=== PATIENT | female | born 2000 | race Caucasian/White ===

== ENCOUNTER 2020-03-24 06:35 | Emergency (ER) | payer OTHER ==
[2020-03-24 06:53] VITALS: BMI 21.9
--- OUTSIDE RECORDS SUMMARY | 2020-03-24 06:56 | XMS ---
:2000 Author Organization [facility] Support Name Relationship Address Phone CATRACHITA Unavailable Unavailable Unavailable JACQUE MORENO MOTHER [address] [place] [id number] Re-disclosure Warning The records that you are about to access may contain information from federally- assisted alcohol or drug abuse programs. If such information is present, then the following federally mandated warning applies: This information has been disclosed to you from records protected by federal confidentiality rules (42 CFR part 2). The federal rules prohibit you from making any further disclosure of this information unless further disclosure is expressly permitted by the written consent of the person to whom it pertains or as otherwise permitted by 42 CFR part 2. A general authorization for the release of medical or other information is NOT sufficient for this purpose. The Federal rules restrict any use of the information to criminally investigate or prosecute any alcohol or drug abuse patient.The records that you are about to access may contain highly sensitive health information, the redisclosure of which is protected by Article 27-F of the [place] Public Health law. If you continue you may haveaccess to information: Regarding HIV / AIDS; Provided by facilities licensed or operated by the [place] Office of Mental Health; or Provided by the [place] Office for People With Developmental Disabilities. If such information is present, then the following [place] mandated warning applies: This information has been disclosed to you from confidential records which are protected by state law. State law prohibits you from making any further disclosure of this information without the specific written consent of the person to whom it pertains, or as otherwise permitted by law. Any unauthorized further disclosure in violation of state law may result in a fine or fci sentence or both. A general authorization for the release of medical or other information is NOT sufficient authorization for further disclosure. Insurance Providers Payer name Policy type Policy ID Covered Covered constitution party's Policy P monique / Coverage constitution party ID relationship to [employer] Inf ormation type carbone [facility] [id number] MEDICAID COMM PLAN
--- NOTE | 2020-03-24 07:09 | PDOC ---
History of Present Illness - General Chief Complaint: Pain Stated Complaint: ABD PAIN Time Seen by Provider: 03/24/20 07:08 History Source: Patient - History of Present Illness Initial Comments: 03/24/20 08:30 19F w/no PMH p/w two days of gradually worsening R lower abdominal pain radiating to her back. She reports dysuria over the last several days. Denies fevers, chills, nausea, vomiting. LMP 02/26/20, not on control, typically regular cycles. She is sexually active with one male partner. She reports taking Plan B one month ago, before her prior menstrual cycle. No known hx of ovarian cysts. Past History - Medical History Allergies/Adverse Reactions: Allergies Allergy/AdvReac Type Severity Reaction Status Date / Time No Known Allergies Allergy Verified 03/19/14 13:40 Home Medications: Ambulatory Orders NK [No Known Home Medication] 03/19/14 COPD: No - Reproductive History Is Patient Now?: No - Psycho-Social/Smoking History Smoking History: Never smoked Have you smoked in the past 12 months: No Information on smoking cessation initiated: No - Substance Abuse Hx (Audit-C & DAST Scrn) How often the patient has a drink containing alcohol: Never Score: In Men: 4 or > Positive; In Women: 3 or > Positive: 0 Screen Result (Pos requires Nsg. Audit-10AR): Negative In the last yr the pt used illegal drug/Rx for NonMed reason: No Score: Yes response is considered Positive: 0 Screen Result (Positive result requires Nsg. DAST-10): Negative Review of Systems - Review of Systems Able to Perform ROS?: Yes Comments:: 03/24/20 08:34 GENERAL/CONSTITUTIONAL: No fever or chills. No weakness. HEAD, EYES, EARS, NOSE AND THROAT: No change in vision. No ear pain or discharge. No sore throat. CARDIOVASCULAR: No chest pain or shortness of breath RESPIRATORY: No cough, wheezing, or hemoptysis. GASTROINTESTINAL: No nausea, vomiting, diarrhea or constipation. GENITOURINARY: Dysuria, R flank pain. No frequency, or other change in urination. MUSCULOSKELETAL: No joint or muscle swelling or pain. No neck or back pain. SKIN: No rash NEUROLOGIC: No headache, vertigo, loss of consciousness, or change in strength/sensation. ENDOCRINE: No increased thirst. No abnormal weight change HEMATOLOGIC/LYMPHATIC: No anemia, easy bleeding, or history of blood clots. ALLERGIC/IMMUNOLOGIC: No hives or skin allergy. *Physical Exam - Vital Signs Last Vital Signs Temp Pulse Resp BP Pulse Ox 98.0 F 77 20 110/59 L 100 03/24/20 06:50 03/24/20 06:50 03/24/20 06:50 03/24/20 06:50 03/24/20 06:50 - Physical Exam 03/24/20 08:35 GENERAL: Awake, alert, and fully oriented, in no acute distress HEAD: No signs of trauma, normocephalic, atraumatic EYES: PERRLA, EOMI, sclera anicteric, conjunctiva clear ENT: Auricles normal inspection, hearing grossly normal, nares patent, oropharynx clear without exudates. Moist mucosa NECK: Normal ROM, supple, no lymphadenopathy, JVD, or masses LUNGS: No distress, speaks full sentences, clear to auscultation bilaterally HEART: Regular rate and rhythm, normal S1 and S2, no murmurs, rubs or gallops, peripheral pulses normal and equal bilaterally. ABDOMEN: RLQ tenderness. No CVA tenderness. Soft, otherwise nontender, nor moactive bowel sounds. No guarding, no rebound. No masses EXTREMITIES : Normal inspection, Normal range of motion, no edema. No clubbing or cyanosis NEUROLOGICAL: Cranial nerves II through XII grossly intact. Normal speech, normal gait, no focal sensorimotor deficits SKIN: Warm, Dry, normal turgor, no rashes or lesions noted PELVIC: No external lesions or discharge. Physiologic discharge. No adnexal tenderness, no cervical motion tenderness. Os closed. No active bleeding or blood in vaginal vault. ED Treatment Course - LABORATORY CBC & Chemistry Diagram: 03/24/20 09:24 03/24/20 09:24 Medical Decision Making - Medical Decision Making 03/24/20 08:36 19F w/no PMH p/w two days gradually worsening lower R abdominal pain alongside dysuria. Ddx UTi vs pyelonephritis given flank pain, although she is afebrile and denies chills. Ovarian torsion vs cyst pain possible, torsion unlikely without nausea, vomiting, with minimal pain and without adnexal tenderness on exam. Plan: UA Urine culture Urine test G/C cervical swab Acetaminophen Dispo: Discharge --- Urine hcg - negative UA - no UTI on analysis On reassessment, patient has persistent RLQ pain, and remains tender on exam. Plan for additional labs, likely CT abdomen/pelvis to eval for other abdominal pathology. --- WBC - [address] abdomen/pelvis --- CT - CT showing ruptured ovarian cyst, no appendicitis or other abdominal pathology identified. Plan for transvaginal ultrasound. --- TVUS - Ruptured ovarian cyst with free fluid, likely hemorrhagic On reassessment, patient reports resolution of symptoms. Discussed results with patient. Plan for discharge with close bag end sewer follow up. Discharge - Discharge Information Problems reviewed: Yes Clinical Impression/Diagnosis: Ovarian cyst Condition: Stable Disposition: HOME - Admission No - Follow up/Referral Referrals: Almaz Jaramillo MD [Primary Care Provider] - Paresh Dodge MD [Staff Physician] - - Patient Discharge Instructions Patient Printed Discharge Instructions: DI for Ovarian Cyst Additional Instructions: You were seen in the ER for an ovarian cyst. Your ultrasound showed an ovarian cyst with normal blood flow. It is important that you follow up with bag end sewer as soon as possible, in the next 2-3 days. Return to the ER if you develop intractable nausea and vomiting, chest pain, or difficulty breathing. - Post Discharge Activity
[2020-03-24] MEDS ORDERED: ACETAMINOPHEN 325 MG TABLET (FP) ONE ×2 (07:31→07:40)
[2020-03-24] MEDS: ACETAMINOPHEN 325 MG TABLET (FP) PO ONE ×2 (07:46→07:48)
[2020-03-24 08:44] LABS: URINE APPEARANCE CLEAR; URINE BILIRUBIN NEGATIVE (NEGATIVE); URINE COLOR YELLOW; URINE GLUCOSE (UA) NEGATIVE (NEGATIVE); URINE KETONE NEGATIVE (NEGATIVE); URINE LEUK ESTERASE NEGATIVE (NEGATIVE); URINE NITRITE NEGATIVE (NEGATIVE); URINE PROTEIN NEGATIVE (NEGATIVE); URINE UROBILINOGEN 0.2 mg/dL (0.2-1.0)
[2020-03-24 08:49] LABS: HCG,QUALITATIVE URINE Negative
--- NOTE | 2020-03-24 09:22 | PDOC ---
Attending Attestation - Resident Resident Name: Kenneth Fajardo - ED Attending Attestation I have performed the following: I have examined & evaluated the patient, The case was reviewed & discussed with the resident, I agree w/resident's findings & plan, Exceptions are as noted - HPI HPI: 03/24/20 09:18 19 yo F p/w RLQ pain radiating to back, worsening, x2 days. Also reports dysuria but otherwise denies vaginal itching pain or discharge. Is sexually active, 1 partner male no contraception use. Denies h/o STI's. States LMP 02/25 and took plan B ~3 weeks ago but did not bleed after taking it. Denies fevers, n/v. No diarrhea or constipation. - Physicial Exam PE: 03/24/20 09:20 General: well appearing, comfortable Abdomen: soft, mild RLQ ttp, no rebound, no guarding Back: no CVA tenderness Pelvic: normal external genitalia, os closed, no CMT, no adnexal tenderness or fullness, no discharge - Medical Decision Making 03/24/20 09:21 19 yo F with mild RLQ ttp, very unlikely torsion as patient appears comfortable, no n/v, no h/o cysts that patient is aware of and pain duration 2 days. Possible appy given RLQ ttp however low suspicion. Possible early menstrual cramps as LMP was 02/25. Also possible UTI or kidney stones. Will also r/o . Plan: -labs -urine -pain control as needed -CT a/p -reassess This clinical encounter is taking place during a federal and state health care emergency attributable to the novel [place] Virus pandemic. The [place] of the Department of Health and Human Services has declared, pursuant to the Public Health Service Act 319F-3 (42 U.S.C. 247d-6d), that a covered persons activities related to medical countermeasures against COVID-19 will be immune from liability under Federal and State law. 03/24/20 15:22 CT and pelvic sono results reviewed. Patient with resolution of symptoms. Suspect symptoms 2/2 ruptured cyst. Patient feels well enough to go home. WIll d/c with return precautions, recommend CAREER DEVELOPMENT ENGINEER f/u. Discharge - Discharge Information Problems reviewed: Yes Clinical Impression/Diagnosis: Ovarian cyst Condition: Stable Disposition: HOME - Follow up/Referral Referrals: Paresh Dodge MD [Staff Physician] - Almaz Jaramillo MD [Primary Care Provider] - - Patient Discharge Instructions Patient Printed Discharge Instructions: DI for Ovarian Cyst Additional Instructions: You were seen in the ER for an ovarian cyst. Your ultrasound showed an ovarian cyst with normal blood flow. It is important that you follow up with rag room supervisor as soon as possible, in the next 2-3 days. Return to the ER if you develop intractable nausea and vomiting, chest pain, or difficulty breathing. - Post Discharge Activity
[2020-03-24] MEDS ORDERED: LACTATED RINGERS SOLUTION 1000 ML INFUS.BAG IV ONE (09:25)
[2020-03-24 09:50] LABS: BASO % 0.1 % (0-2.0); EOS % 3.5 % (0-4.5); HEMATOCRIT 36.9 % (32.4-45.2); HEMOGLOBIN 12.9 GM/dL (10.7-15.3); LYMPH % 25.2 % (8-40); MCH 31.2 pg (25.7-33.7); MONO % 6.1 % (3.8-10.2); NEUT % 65.1 % (42.8-82.8); PLATELET COUNT 327 K/MM3 (134-434); RBC 4.15 M/mm3 (3.60-5.2); RDW 12.7 % (11.6-15.6); WHITE BLOOD COUNT 14.2 K/mm3 (4.0-10.0)
[2020-03-24 09:51] LABS: INR 1.12 (0.83-1.09); PROTHROMBIN TIME (PATIENT) 13.5 SEC (9.7-13.0)
[2020-03-24 09:52] LABS: POTASSIUM 4.3 mmol/L (3.5-5.1)
[2020-03-24 09:54] LABS: ACTIVATED PTT 29.1 SECONDS (25.2-36.5); CALCIUM 8.6 mg/dL (8.5-10.1)
[2020-03-24 09:55] LABS: ALBUMIN 3.6 g/dl (3.4-5.0); BLOOD UREA NITROGEN 11.4 mg/dL (7-18)
[2020-03-24 09:58] LABS: CREATININE 0.7 mg/dL (0.55-1.3)
[2020-03-24 10:00] LABS: BILIRUBIN,TOTAL 0.6 mg/dL (0.2-1); TOT PROT 7.2 g/dl (6.4-8.2)
[2020-03-24 14:40] VITALS: BP 109/56; PULSE 69; TEMP 98.4
== END 2020-03-24 15:29 | disposition home or self-care (01) ==
LOC: JER 06:35
DX: N83.209 Unspecified ovarian cyst, unspecified side (principal)
CPT/HCPCS: 36415; 74177-TC; 76830-TC; 80053; 81003; 82962; 84702; 84703; 85025; 85610; 85730; 86850; 86900; 86901; 87081; 87086; 99284-25; Q9967

== ENCOUNTER 2021-01-20 05:08 | Emergency (ER) | payer OTHER ==
[2021-01-20 05:19] VITALS: BMI 21.0
[2021-01-20] MEDS ORDERED: CEPHALEXIN 250 MG/5 ML ORAL SUSPENSION PO ONE (06:11)
[2021-01-20] MEDS ORDERED: ACETAMINOPHEN 325 MG TABLET (FP) PO ONE (06:12)
[2021-01-20] MEDS ORDERED: LIDOCAINE HCL/EPINEPHRINE/PF 10 ML VIAL NR ONE (06:21)
[2021-01-20] MEDS ORDERED: CEPHALEXIN MONOHYDRATE 500 MG CAPSULE (UD) ONE (06:24)
[2021-01-20] MEDS ORDERED: ACETAMINOPHEN 325 MG TABLET (FP) ONE (06:24)
[2021-01-20] MEDS ORDERED: LIDOCAINE 1%/EPI 1:100000 (20 ML MULTI DOSE VIAL) ONE (09:07)
[2021-01-20] MEDS ORDERED: DIPHTH,PERTUSS(ACELL),TET 0.5 ML DISP.SYRIN IM ONE ×2 (10:08→10:20)
[2021-01-20] MEDS ORDERED: LIDOCAINE 1%/EPI 1:100000 (20 ML MULTI DOSE VIAL) IJ ONE (10:20)
[2021-01-20 11:30] VITALS: BP 105/67; PULSE 66; TEMP 98.2
== END 2021-01-20 11:31 | disposition home or self-care (01) ==
LOC: JER 05:08
PROC: 3E0234Z Introduction of Serum, Toxoid and Vaccine into Muscle, Percutaneous Approach (ICD-10-PCS; principal; 2021-01-20)
DX: S09.90XA Unspecified injury of head, initial encounter (principal); W19.XXXA Unspecified fall, initial encounter; Y92.9 Unspecified place or not applicable
CPT/HCPCS: 70450-TC; 90715; 99284-25

== ENCOUNTER 2021-01-29 18:49 | Emergency (ER) | payer OTHER ==
[2021-01-29 19:09] VITALS: BP 120/70; PULSE 75; TEMP 98; BMI 21.0
== END 2021-01-29 23:20 | disposition home or self-care (01) ==
LOC: JERFT 18:49
DX: S01.01XA Laceration without foreign body of scalp, initial encounter (principal); V49.9XXA Car occupant (driver) (passenger) injured in unspecified traffic accident, initial encounter; Z48.02 Encounter for removal of sutures
CPT/HCPCS: 99281-25